=== PATIENT | male | born 1965 | race Hispanic/Latino ===

== ENCOUNTER 2021-02-14 08:53 | Outpatient (CLI) | payer OTHER ==
[2021-02-14 09:54] LABS: Blood Urea Nitrogen 9 mg/dL (9-20)
--- NOTE | 2021-02-14 12:46 | Cat Scan Report ---
CTA ABDOMEN, PELVIS, AND LOWER EXTREMITIES WITH CONTRAST INDICATION / CLINICAL INFORMATION: ABDOMINAL AORTA THROMBOSIS OMNI 350 100ML. TECHNIQUE: Axial CT images were obtained through the abdomen, pelvis and lower extremities after inje ction of 100 cc of Omnipaque 350 IV contrast. 3 plane MIP / 3D reconstructions were produced. All CT scans at this location are performed using CT dose reduction for ALARA by means of automated exposure control. COMPARISON: None available. FINDINGS: CTA ABDOMEN: Abdominal Aorta: There is mild calcific atherosclerosis. Kissing stents are noted at the bifurcation. Normal opacification throughout the stents. Celiac Artery: No significant abnormality. Superior Mesenteric Artery: Moderate calcific atherosclerosis. Right Renal Artery: Mild calcific atherosclerosis. Left Renal Artery: Moderate calcific atherosclerosis, most prominent at the ostia. Inferior Mesenteric Artery: No significant abnormality. CTA PELVIS: RIGHT: - Common Iliac Artery: Indwelling stent without occlusion. Moderate calcific atherosclerosis distal t o the stent. - Internal Iliac Artery: Moderate calcific atherosclerosis. - External Iliac Artery: Moderate calcific atherosclerosis. LEFT: - Common Iliac Artery: Indwelling stent without occlusion. Moderate calcific atherosclerosis distal t o the stent. - Internal Iliac Artery: Moderate calcific atherosclerosis - External Iliac Artery: Moderate calcific atherosclerosis CTA LOWER EXTREMITIES: RIGHT LOWER EXTREMITY: - Common Femoral Artery: Moderate calcific atherosclerosis - Superficial Femoral Artery: There is severe calcific atherosclerosis with complete occlusion of the middle third with reconstitution at the level of the junction of the SFA with popliteal artery. - Profunda Femoral Artery: Minimal calcific atherosclerosis - Popliteal Artery: Mild calcific atherosclerosis - Anterior Tibial Artery: Mild calcific atherosclerosis - Tibioperoneal Trunk: Moderate calcific atherosclerosis - Posterior Tibial Artery: No significant abnormality. - Peroneal Artery: There is poor opacification of the peroneal artery at the level of the ankle. - Ankle runoff: 2 vessel. LEFT LOWER EXTREMITY: - Common Femoral Artery: Moderate calcific atherosclerosis - Superficial Femoral Artery: Severe calcific atherosclerosis without evidence of complete occlusion. - Profunda Femoral Artery: Mild calcific atherosclerosis - Popliteal Artery: Moderate calcific atherosclerosis - Anterior Tibial Artery: Moderate calcific atherosclerosis - Tibioperoneal Trunk: Moderate calcific atherosclerosis - Posterior Tibial Artery: No significant abnormality. - Peroneal Artery: There is poor opacification of the peroneal artery at the level of the ankle. - Ankle runoff: 2 vessel. NONTARGET STRUCTURES: ABDOMEN:Diverticulosis without diverticulitis. PELVIS:No significant abnormality. LOWER EXTREMITIES:No significant abnormality. SKELETAL: No significant abnormality. ADDITIONAL FINDINGS: None. IMPRESSION: 1. Complete opacification of the middle third of the right superficial femoral artery with reconstitu tion at the junction of the superficial femoral artery in the popliteal artery. 2. Scattered calcific atherosclerosis as detailed above, most pronounced at the left superficial femo ral artery. Signer Name: Terrence Mosley DO Signed: 02/14/2021 12:42 PM Workstation Name: [id number]
== END 2021-02-14 08:54 | disposition home or self-care (01) ==
LOC: CT 08:53
PROVIDERS: ATTEND Radiology Diagnostic Radiology
DX: I70.213 Atherosclerosis of native arteries of extremities with intermittent claudication, bilateral legs (principal); I74.09 Other arterial embolism and thrombosis of abdominal aorta; I70.8 Atherosclerosis of other arteries
CPT/HCPCS: 36415; 75635; 82565; 84520; Q9967

== ENCOUNTER 2021-04-07 06:45 | Day surgery (SDC) | payer OTHER ==
[2021-04-07 07:43] LABS: Basophils % (Auto) 0.7 % (0.0-1.8); Eosinophils # (Auto) 0.3 K/mm3 (0.0-0.4); Eosinophils % (Auto) 4.5 % (0.0-4.3); Hematocrit 43.2 % (35.5-45.6); Hemoglobin 15.2 gm/dl (11.8-15.2); Lymphocytes # (Auto) 2.9 K/mm3 (1.2-5.4); Lymphocytes % (Auto) 42.3 % (13.4-35.0); Mean Corpuscular HGB Conc 35 % (32-34); Mean Corpuscular Volume 90 fl (84-94); Monocytes # (Auto) 0.8 K/mm3 (0.0-0.8); Monocytes % (Auto) 11.3 % (0.0-7.3); Platelet Count 203 K/mm3 (140-440); Red Cell Distribution Width 13.1 % (13.2-15.2)
[2021-04-07 07:53] LABS: INR 1.12 (0.87-1.13)
[2021-04-07 07:54] LABS: BUN/Creatinine Ratio 10; Blood Urea Nitrogen 8 mg/dL (9-20); Calcium 9.8 mg/dL (8.4-10.2); Hemolysis Index 7; Partial Thromboplastin Time 26.4 Sec. (24.2-36.6)
[2021-04-07] MEDS ORDERED: SODIUM CHLORIDE 0.9% 500 ML 500 ML IV SCH (08:00)
[2021-04-07] MEDS ORDERED: HEPARIN/NS 5000 UNIT/500ML 1,000 ML IR ONE (08:21)
[2021-04-07] MEDS: fentaNYL 100 MCG/2 ML INJ ONE ×11 (08:37→11:37)
[2021-04-07] MEDS: MIDAZOLAM 2 MG/2 ML INJ ONE ×11 (08:37→11:37)
[2021-04-07] MEDS: LIDOCAINE (2%) 20 MG/1 ML VIAL 20 ML MDV INFILTRATI ONE ×2 (08:38→09:38)
[2021-04-07] MEDS: ceFAZolin/Water 2 GM/20 ML 2 GM/20 ML SYRINGE IV ONE ×2 (08:38→09:08)
[2021-04-07] MEDS: HEPARIN 10,000 UNITS/10 ML VIAL ONE ×2 (09:53→10:40)
[2021-04-07] MEDS ORDERED: HEPARIN/NS 5000 UNIT/500ML 500 ML IR ONE (10:09)
[2021-04-07] MEDS ORDERED: CLOPIDOGREL 300 MG TAB PO NR (12:37)
[2021-04-07 15:14] VITALS: BP 130/77
--- NOTE | 2021-04-07 16:35 | Operative Report ---
Operative Report Operative Report: EXAM: 1. Ultrasound-guided access of the right common femoral artery. 2. Ultrasound-guided access of the left common femoral artery. 3. Selection of the abdominal aorta with angiography. 4. Angiography of the bilateral iliac vessels 5. Shockwave angioplasty with a 7 mm x 60 mm angioplasty balloon in the right common iliac artery 6. Shockwave angioplasty with a 7 mm x 60 mm angioplasty balloon in the left common iliac artery and left external iliac artery 7. Intravascular ultrasound of the right common iliac artery and external iliac artery and aorta 8. Intravascular ultrasound of the left common iliac artery and external iliac artery and aorta 9. Stenting of the left external iliac artery with a 10 mm x 80 mm self- expanding stent with postdilatation with a 9 mm x 40 mm and 10 mm x 40 mm angioplasty balloon 10. Stenting of the right common iliac artery with a 10 mm x 40 mm self-expandi ng stent with postdilatation with a 9 mm x 40 mm angioplasty balloon and 10 mm x 40 mm angioplasty balloon 11. Angioplasty of the bilateral common iliac arteries with kissing angioplasty technique with a 9 mm x 40 mm and 9 mm x 40 mm angioplasty balloon DATE: 04/07/2021 [employer]DR[employer] WORKER: JESSICA UP MD INDICATION: Intermittent claudication with severe bilateral lower extremity claudication preventing ambulation. Short distance claudicant. Failed medical management and walking management. MEDICATIONS: Please see nursing report for full details. DEVICES: 7 mm x 60 mm shockwave angioplasty balloon 10 mm x 40 mm self-expanding stent, right common iliac artery, postdilated with 9 mm x 40 mm angioplasty balloon and 10 mm x 40 mm angioplasty balloon 10 mm x 80 mm self-expanding stent, left external iliac artery, postdilated with 9 mm x 40 mm angioplasty balloon and 10 mm x 40 mm angioplasty balloon CONTRAST: Please see Patient Support Partner report for full details PROCEDURE: The risks, benefits, and alternatives were discussed with the patient; written informed consent was obtained. The patient was brought to the Patient Support Partner and angio suite and prepped and draped in a sterile fashion. Both groins were prepped and draped in a sterile fashion. Ultrasound was used to evaluate the right common femoral artery. The right common femoral artery was patent. Under direct ultrasound guidance, the right common femoral artery was accessed with a 21-gauge micropuncture needle. 0.018 inch wire was passed into the aorta. Needle was exchanged for transitional dilator. Wire was exchanged for a 0.035 inch wire. Transitional dilator was exchanged for 5 [place] sheath. Ultrasound was used to evaluate the left common femoral artery. The left common femoral artery was patent. Under direct ultrasound guidance, the left common femoral artery was accessed with a 21-gauge micropuncture needle. 0.018 inch wire was passed into the aorta. Needle was exchanged for transitional dilator. Wire was exchanged for a 0.035 inch wire. Transitional dilator was exchanged for 5 [place] sheath. Digital subtraction angiography was performed through both the sheaths and the abdominal aorta was selected and digital subtraction angiography was performed. The infrarenal abdominal aorta was patent. The bilateral common iliac artery stents had some and amount of restenosis of 10 to 20% and appeared to be slightly undersized given the size of the rest of the vessels. There is a at least 50% narrowing of the right distal common iliac artery. The right external iliac artery is patent. The right internal iliac artery has some arterial disease. The left proximal external iliac artery appears to have at least a 50% stenosis. The bilateral common femoral arteries are patent. The bilateral proximal profunda femoral arteries are patent. The left proximal superficial femoral artery is patent. The right proximal superficial femoral artery is at least 40% stenotic. Both sheaths were then upsized to 6 [place] sheaths. Shockwave lithoplasty was then used to perform shockwave angioplasty of the right common iliac artery proximally and distally and shockwave lithoplasty was used to perform shockwave angioplasty of the left common iliac artery proximally and distally in the left proximal external iliac artery. This was performed with a 7 mm x 60 mm angioplasty balloon. Afterwards, digital subtraction angiography was used but this was hard to evaluate the vessel given the large size of the vessel. In order to ensure an adequate result, intravascular ultrasound was used. Intravascular ultrasound was used of the infrarenal abdominal aorta which was patent. Intravascular ultrasound was used of the right common iliac artery stent which demonstrated 10 to 20% restenosis. The right distal common iliac artery had at least a 50% residual stenotic eccentric calcified lesion on intravascular ultrasound. The artery was approximately 10 mm in diameter. The right external iliac artery was patent. Intravascular ultrasound was used to evaluate the left common iliac artery stent which demonstrated a focal area of mobile 40% plaque/stenosis with the rest of the vessel representing only 10% restenosis. The left proximal external iliac artery stenosis was 60% residual stenosis with calcifications. The rest of the external iliac artery was patent. The artery was approximately 10 mm in diameter. 10 mm x 80 mm self-expanding stent was then deployed overlapping the area of mobile plaque/restenosis of the left common iliac artery and the left proximal external iliac artery. This was then postdilated with a 9 mm x 40 mm angioplasty balloon in the common iliac artery and a 10 mm x 40 mm angioplasty balloon in the external iliac artery. Digital subtraction angiography demonstrated no residual narrowing. Intravascular ultrasound demonstrated increased expansion of the stent with no residual narrowing. 10 mm x 40 mm self-expanding stent was then deployed over the stenotic lesion of the right distal common iliac artery. This was postdilated with a 10 mm x 40 mm angioplasty balloon distally and 9 mm x 40 mm angioplasty balloon proximally. Digital subtraction angiography demonstrated no residual stenosis. Intravascular ultrasound demonstrated increased expansion of the stent with no residual narrowing. Kissing 9 mm x 40 mm angioplasty balloons were then used to dilate the common iliac artery balloon expandable stents. Afterwards, digital subtraction angiography demonstrated increased expansion of the stents with no residual narrowing. At the conclusion of the procedure, ACT was obtained. Once ACT reached normal level, all wires, catheters, and sheaths were removed and pressure was held until hemostasis was achieved. Patient tolerated the procedure well. No immediate postprocedural complication. Patient was loaded with aspirin and Plavix. FINDINGS: Please see Patient Support Partner report above. IMPRESSION: 1. Successful angioplasty and stenting of the right common iliac artery. 2. Successful angioplasty of the left common iliac artery. 3. Successful stenting and angioplasty of the left external iliac artery. 4. Successful ultrasound-guided access of the bilateral common femoral arteries. 5. Successful selection of the abdominal aorta with angiography. 6. Successful intravascular ultrasound of the arteries as described above.
--- NOTE | 2021-04-07 16:35 | Short Stay Summary ---
Short Stay Documentation Date of service: 04/07/21 Narrative H&P: 55-year-old male with intermittent claudication who presents for revascularization. - History Principal diagnosis: Intermittent claudication H&P: obtained from office - Allergies and Medications Current Medications: Allergies No Known Allergies Allergy (Verified 04/17/16 08:01) Home Medications Medication Instructions Recorded Confirmed Last Taken Type Aspirin EC [Halfprin EC] 81 mg PO DAILY 04/17/16 04/07/21 04/07/21 History 81 mg Fenofibrate 160 mg PO DAILY 04/17/16 04/07/21 04/07/21 History 164 mg Lovastatin Tab [Mevacor] 10 mg PO DAILY 04/17/16 04/07/21 04/07/21 History 0530 Omeprazole Magnesium [PriLOSEC Otc] 20 mg PO DAILY 04/17/16 04/07/21 04/07/21 05:30 History 20 mg Clopidogrel [Plavix] 75 mg PO QDAY #30 tablet 04/07/21 Unknown Rx Furosemide [Lasix TAB] 20 mg PO DAILY 04/07/21 04/07/21 04/07/21 History 20 mmg Metoprolol [Lopressor TAB] 50 mg PO DAILY 04/07/21 04/07/21 04/07/21 History 0530 Ubidecarenone [Co Q-10] 1 tab PO DAILY 04/07/21 04/07/21 04/07/21 05:30 History 1 tab cilostazoL [Pletal] 100 mg PO BID 04/07/21 04/07/21 04/07/21 History 100 mg Active Medications Sodium Chloride (Nacl 0.9% 500 Ml) 500 mls @ 50 mls/hr IV DIRECT MALLORY Last Admin: 04/07/21 08:35 Dose: 50 mls/hr Documented by: - Physical exam General appearance: no acute distress Lungs: Normal air movement Gastrointestinal: normal Extremities: normal temperature, normal color, abnormal (Nonpalpable pedal pulses) - Brief post op/procedure progress note Date of procedure: 04/07/21 Pre-op diagnosis: Intermittent claudication bilaterally Post-op diagnosis: same Procedure: 1. Ultrasound-guided access of the right common femoral artery. 2. Ultrasound-guided access of the left common femoral artery. 3. Selection of the abdominal aorta with angiography. 4. Angiography of the bilateral iliac vessels 5. Shockwave angioplasty with a 7 mm x 60 mm angioplasty balloon in the right common iliac artery 6. Shockwave angioplasty with a 7 mm x 60 mm angioplasty balloon in the left common iliac artery and left external iliac artery 7. Intravascular ultrasound of the right common iliac artery and external iliac artery and aorta 8. Intravascular ultrasound of the left common iliac artery and external iliac artery and aorta 9. Stenting of the left external iliac artery with a 10 mm x 80 mm self- expanding stent with postdilatation with a 9 mm x 40 mm and 10 mm x 40 mm leena oplasty balloon 10. Stenting of the right common iliac artery with a 10 mm x 40 mm self- expanding stent with postdilatation with a 9 mm x 40 mm angioplasty balloon and 10 mm x 40 mm angioplasty balloon 11. Angioplasty of the bilateral common iliac arteries with kissing angioplasty technique with a 9 mm x 40 mm and 9 mm x 40 mm angioplasty balloon Anesthesia: local (With conscious sedation) Surgeon: JESSICA UP Estimated blood loss: minimal Condition: stable - Hospital course Hospital course: Patient tolerated the procedure well. No immediate postprocedural complications. Patient was discharged 4 hours later. - Disposition Condition at discharge: Stable Disposition: 01 HOME / SELF CARE / HOMELESS - Discharge Diagnoses (1) Intermittent claudication of both lower extremities due to atherosclerosis Status: Acute (2) Hyperlipidemia Status: Chronic (3) Hypertension Status: Chronic (4) Iliac artery stenosis, bilateral Status: Chronic (5) PAD (peripheral artery disease) Status: Chronic Short Stay Discharge Plan Activity: advance as tolerated Weight Bearing Status: Weight Bear as Tolerated Diet: regular Wound: keep clean and dry (Remove pressure dressings on 04/08/2021), per your surgeon's advice (Do not lift more than 10 pounds for 1 week), other (Take baby aspirin and Plavix (clopidogrel) and cilostazol daily) Additional Instructions: Follow up with Dr Up in 2 weeks Apr 25, at 3:15 PM . Leave pressure dressings on until morning then remove. Follow up with: PRIMARY CARE, [Primary Care Provider] - 7 Days Forms: Post Arteriogram Instruct Prescriptions: Clopidogrel [Plavix] 75 mg PO QDAY #30 tablet
== END 2021-04-07 16:30 | disposition home or self-care (01) ==
LOC: CATHLABREC 06:45
PROVIDERS: ATTEND Radiology Diagnostic Radiology
DX: I70.213 Atherosclerosis of native arteries of extremities with intermittent claudication, bilateral legs (principal); I74.09 Other arterial embolism and thrombosis of abdominal aorta; I10 Essential (primary) hypertension; E78.00 Pure hypercholesterolemia, unspecified; K21.9 Gastro-esophageal reflux disease without esophagitis; Z87.891 Personal history of nicotine dependence; Z79.82 Long term (current) use of aspirin; Z79.899 Other long term (current) drug therapy; Z98.890 Other specified postprocedural states
CPT/HCPCS: 36415; 37220; 37221; 37252; 75630; 76937; 80048; 85025; 85610; 85730; C1725; C1753; C1769; C1876; C1887; C1894; J0690; J1644; J2250; J3010; J7040; Q9967